=== PATIENT | male | born 1955 | race Caucasian/White ===

== ENCOUNTER 2021-01-30 15:27 | Inpatient (IN) | payer MEDICARE, OTHER, SELFPAY ==
[2021-01-30] VITALS (35 sets, daily range): BP systolic 121–150; BP diastolic 68–79; PULSE 78–122; RESP 15–23; TEMP 36.6–37.3; O2SAT 91–99; BMI 26.4
--- NOTE | 2021-01-30 15:41 | XRR_ITS ---
PROCEDURE INFORMATION: Exam: XR Chest Exam date and time: 01/30/2021 3:50 PM Age: 65 years old Clinical indication: Dyspnea; Additional info: Dyspnea/cough TECHNIQUE: Imaging protocol: XR of the chest. Views: 1 view. COMPARISON: CR Chest 1 [place] [id number] 02/10/2019 6:26 AM FINDINGS: Lungs: There is platelike atelectasis at the left lung base. Pleural spaces: Unremarkable. No pleural effusion. No pneumothorax. Heart/Mediastinum: Unremarkable. No cardiomegaly. Diaphragm: There is mild elevation of the left hemidiaphragm with transposition of the splenic flexure colon superior to the spleen there is gaseous distension of the visualized splenic flexure. Bones/joints: Unremarkable. XR/XR chest 1V portable [id number] IMPRESSION: Mild elevation of the left hemidiaphragm associated with transposition of the splenic flexure colon superior to the spleen. This is a normal variant. Currently there is gaseous distension of the visualized splenic flexure and platelike atelectasis at the left lung base.
--- NOTE | 2021-01-30 15:48 | W.ED.FEVER ---
HPI - Fever General: Chief Complaint: Fever Stated Complaint: fever Time Seen by Provider: 01/30/21 15:30 History of Present Illness: HPI Narrative: 65-year-old male who presents emergency room complaining of a fever. He has been running a fever most of this past week. He has seen his primary care physician in [facility] where he lives and was told he had an elevated white count. He has a history of MS and he self caths he frequently has urinary tract infections he evidently has been taking cefdinir as a prophylactic for some time now. He is wheelchair-bound due to MS he denies any skin ulcers or redness. He had a temp of up to 103 earlier today. MD elicited complaint: fever Pertinent past history: sepsis and other (UTIs, self cath, history MS) Onset (ago): day(s) (5) Exacerbating factors: nothing Relieving factors: nothing Associated symptoms: Reports chills; Deny abdominal pain, flank pain, chest pain, confusion, cough, diarrhea, dysuria, extremity pain, headache(s), myalgias, nasal congestion, nausea, night sweats, rash, rhinorrhea, short of breath, sinus pain, stiffness, sore throat, vomiting or weight loss Treatments prior to arrival fever: none Review of Systems Const: Reports: chills; Denies: night sweats ENMT: Denies: nasal congestion or sinus pain Card: Denies: chest pain Resp: Denies: dyspnea, productive cough or non-productive cough GI: Denies: abdominal pain, nausea, vomiting or diarrhea : Denies: flank pain or dysuria Musc: Denies: extremity pain Skin/Breast: Denies: rash or pruritus Neuro: Denies: headache(s) or confusion Physical Exam Const: COMMON NORMALS: no acute distress GENERAL APPEARANCE: cooperative and comfortable ORIENTATION/CONSCIOUSNESS: Yes awake, Yes oriented to person, Yes oriented to place and Yes oriented to time HENMT: COMMON NORMALS: normocephalic, atraumatic and hearing grossly normal bilaterally HEAD & SCALP: normocephalic and atraumatic Neck/C-Spine: COMMON NORMALS: no JVD Resp: COMMON NORMALS: normal respiratory effort, No retractions, No use of accessory muscles and clear to auscultation bilaterally AUSCULTATION: clear to auscultation bilaterally Cardio: COMMON NORMALS: no JVD, regular rhythm and No murmurs present (Cardio) RATE: tachycardic RHYTHM: regular rhythm GI: COMMON NORMALS: Soft to palpation and No hepatosplenomegaly present AUSCULTATION: Yes normoactive bowel sounds PALPATION: Yes Soft to palpation, No Tenderness to palpation present (GI), No Guarding due to palpation present (GI) and Yes No hepatosplenomegaly present Extremity: COMMON NORMALS: normal to inspection, capillary refill normal, no clubbing, cyanosis or edema, no calf tenderness and no pedal edema Neuro: SENSORIUM/ORIENTATION: Yes oriented to person, Yes oriented to place and Yes oriented to time Skin: COMMON NORMALS: no rashes or lesions noted GENERAL SKIN EXAM: no rashes or lesions noted Course Vital Signs: Vital signs: Vital Signs Temperature 97.0 F L 01/31/21 20:47 Pulse Rate 90 02/01/21 06:00 Respiratory Rate 16 01/31/21 20:00 Blood Pressure 122/72 02/01/21 05:00 Pulse Oximetry 88 L 02/01/21 01:30 MDM - Fever MDM Narrative: Medical decision making narrative: Profound sepsis with an elevated white count. Concerned about the patient antibiotic coverage she has been on prophylactic antibiotics for extended period of time include except there is likely to lead to highly resistant bacteria. We will cover him with vancomycin Levaquin and Zosyn initially in the ER. Discussed with the hospitalist. Orders are written. Will place in the ICU. Suspect he may need Primaxin to cover for ESBL also discussed this with the hospitalist. Discussed the course of care with the patient as well as the lab findings he expressed and his both expressed understanding. Lab Data: Labs: Lab Results 01/30/21 01/30/21 01/30/21 Range/Units 16:27 16:27 16:27 WBC 40.3 H* (4.0-10.0) 10^3/ uL RBC 5.19 (4.1-5.3) 10^6/u L Hgb 16.1 (11.7-16.6) g/dL Hct 47.8 (42.0-52.0) % MCV 92.1 (80-94) fL MCH 31.0 (28.0-34.0) pg MCHC 33.7 (30.0-36.0) g/dL RDW 14.0 (12.1-15.1) % Plt Count 366 (130-400) 10^3/c mm MPV 9.1 (7.4-10.4) fL Neut % (Auto) 87.2 % Lymph % (Auto) 2.5 % [place] % (Auto) 8.8 % Eos % (Auto) 0.0 % Baso % (Auto) 0.4 % Neut # (Auto) 35.09 H (1.8-7.7) 10^3/u L Lymph # (Auto) 1.0 (0.8-4.8) 10^3/u L [place] # (Auto) 3.6 H (0.2-0.9) 10^3/u L Eos # (Auto) 0.0 (0.0-0.8) 10^3/u L Baso # (Auto) 0.2 H (0.0-0.1) 10^3/u L Nucleated RBC % (a uto) 0 % Nucleated RBCs # 0.0 /100WBC Sodium 134 L (136-145) mmol/L Potassium 4.2 (3.5-5.1) mmol/L Chloride 97 L (98-107) mmol/L Carbon Dioxide 25 (22-29) mmol/L Anion Gap 16.2 (5-19) BUN 13 (8-23) mg/dL Creatinine 0.9 (0.7-1.2) mg/dL GFR Calculation 84.2 L (90-130) mL/min Glucose 194 H (65-115) mg/dL Calculated Osmolal ity 283 L (285-295) mOsm/k g Lactic Acid 1.8 (0.5-2.2) mmol/L Calcium 9.2 (8.5-10.5) mg/dL Total Bilirubin 0.5 (0.15-1.2) mg/dL AST 14 (0-40) U/L ALT 23 (0-41) U/L Alkaline Phosphata se 94 (40-130) IU/L Creatine Kinase 44 (39-308) U/L Total Protein 8.3 (6.6-8.7) g/dL Albumin 4.3 (3.5-5.2) g/dL Globulin 4.0 (1.3-4.6) g/dL Lipase 18 (13-60) U/L Urine Color (Yellow) Urine Appearance (CLEAR) Urine pH (5-7) Ur Specific Gravit y (1.005-1.030) Urine Protein (Negative) Urine Glucose (UA) (Normal) Urine Ketones (Negative) Urine Blood (Negative) Urine Nitrate (Negative) Urine Bilirubin (Negative) Urine Urobilinogen (Negative) mg/dL Ur Leukocyte Maryjane ase (Negative) Urine RBC (0-2) /hpf Urine WBC (0-5) /hpf Ur Squamous Epith Cells (0-5) /hpf Ur Transition Epit h Cell /hpf Amorphous Sediment Urine Bacteria (NONE) /hpf Urine Mucus /hpf 01/30/21 Range/Units 16:33 WBC (4.0-10.0) 10^3/ uL RBC (4.1-5.3) 10^6/u L Hgb (11.7-16.6) g/dL Hct (42.0-52.0) % MCV (80-94) fL MCH (28.0-34.0) pg MCHC (30.0-36.0) g/dL RDW (12.1-15.1) % Plt Count (130-400) 10^3/c mm MPV (7.4-10.4) fL Neut % (Auto) % Lymph % (Auto) % [place] % (Auto) % Eos % (Auto) % Baso % (Auto) % Neut # (Auto) (1.8-7.7) 10^3/u L Lymph # (Auto) (0.8-4.8) 10^3/u L [place] # (Auto) (0.2-0.9) 10^3/u L Eos # (Auto) (0.0-0.8) 10^3/u L Baso # (Auto) (0.0-0.1) 10^3/u L Nucleated RBC % (a uto) % Nucleated RBCs # /100WBC Sodium (136-145) mmol/L Potassium (3.5-5.1) mmol/L Chloride (98-107) mmol/L Carbon Dioxide (22-29) mmol/L Anion Gap (5-19) BUN (8-23) mg/dL Creatinine (0.7-1.2) mg/dL GFR Calculation (90-130) mL/min Glucose (65-115) mg/dL Calculated Osmolal ity (285-295) mOsm/k g Lactic Acid (0.5-2.2) mmol/L Calcium (8.5-10.5) mg/dL Total Bilirubin (0.15-1.2) mg/dL AST (0-40) U/L ALT (0-41) U/L Alkaline Phosphata se (40-130) IU/L Creatine Kinase (39-308) U/L Total Protein (6.6-8.7) g/dL Albumin (3.5-5.2) g/dL Globulin (1.3-4.6) g/dL Lipase (13-60) U/L Urine Color Yellow (Yellow) Urine Appearance Clear (CLEAR) Urine pH 5 (5-7) Ur Specific Gravit y 1.015 (1.005-1.030) Urine Protein Trace (Negative) Urine Glucose (UA) Norm (Normal) Urine Ketones Negative (Negative) Urine Blood Trace H (Negative) Urine Nitrate Negative (Negative) Urine Bilirubin Neg (Negative) Urine Urobilinogen 1 H (Negative) mg/dL Ur Leukocyte Maryjane ase 1+ H (Negative) Urine RBC 0-4 H (0-2) /hpf Urine WBC 15-25 H (0-5) /hpf Ur Squamous Epith Cells 0-4 H (0-5) /hpf Ur Transition Epit h Cell Rare /hpf Amorphous Sediment Not Reportable Urine Bacteria Trace (NONE) /hpf Urine Mucus 1+ /hpf Discharge Plan Discharge Patient Disposition: Admitted As Inpatient Admit Provider: Nj Moody Clinical Impression: Sepsis, UTI (urinary tract infection), HTN (hypertension), Multiple sclerosis Condition: Stable Coding Level of Care Code 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
[2021-01-30 16:42] LABS: Basophils # 0.2 10^3/uL (0.0-0.1); Basophils % 0.4 %; Hematocrit 47.8 % (42.0-52.0); Hemoglobin 16.1 g/dL (11.7-16.6); Lymphocytes % 2.5 %; Mean Corpuscular HGB Conc 33.7 g/dL (30.0-36.0); Mean Corpuscular Volume 92.1 fL (80-94); Mean Platelet Volume 9.1 fL (7.4-10.4); Monocytes # 3.6 10^3/uL (0.2-0.9); Monocytes % 8.8 %; Neutrophils # 35.09 10^3/uL (1.8-7.7); Neutrophils % 87.2 %; Nucleated Red Blood Cells % 0 %; Platelet Count 366 10^3/cmm (130-400); Red Blood Count 5.19 10^6/uL (4.1-5.3)
[2021-01-30 16:50] LABS: White Blood Count 40.3 10^3/uL (4.0-10.0)
[2021-01-30 16:53] LABS: Alanine Aminotransferase 23 U/L (0-41); Albumin Level 4.3 g/dL (3.5-5.2); Alkaline Phosphatase 94 IU/L (40-130); Anion Gap 16.2 (5-19); Aspartate Amino Transferase 14 U/L (0-40); Blood Urea Nitrogen 13 mg/dL (8-23); Calcium 9.2 mg/dL (8.5-10.5); Carbon Dioxide 25 mmol/L (22-29); Chloride 97 mmol/L (98-107); Creatine Phosphokinase 44 U/L (39-308); Glomerular Filtration Rate 84.2 mL/min (90-130); Glucose 194 mg/dL (65-115); Lipase 18 U/L (13-60); Osmolality Calculated 283 mOsm/kg (285-295); Potassium 4.2 mmol/L (3.5-5.1); Sodium 134 mmol/L (136-145); Total Bilirubin 0.5 mg/dL (0.15-1.2); Total Protein 8.3 g/dL (6.6-8.7)
[2021-01-30 16:54] LABS: Lactic Sepsis W/Reflex 1.8 mmol/L (0.5-2.2)
[2021-01-30 16:57] LABS: Bilirubin Urine Neg (Negative); Blood Urine Trace (Negative); Glucose Urine UA Norm (Normal); Ketones Urine Negative (Negative); Leukocyte Esterase Urine 1+ (Negative); Nitrate Urine Negative (Negative); Protein Urine Trace (Negative); Specific Gravity, Urine 1.015 (1.005-1.030); Urine Appearance Clear (CLEAR); Urine Color Yellow (Yellow); Urobilinogen Urine 1 mg/dL (Negative); pH Urine 5 (5-7)
[2021-01-30 16:58] LABS: Add Urine Microscopic? YES
[2021-01-30 17:03] LABS: RBC Urine 0-4 /hpf (0-2); Squamous Epithelial Cell Urine 0-4 /hpf (0-5); Transitional Epi Cells Urine RARE /hpf; WBC Urine 15-25 /hpf (0-5)
[2021-01-30 17:04] LABS: Add Urine Culture? Yes; Bacteria Urine TRACE /hpf; Mucus Urine 1+ /hpf
--- NOTE | 2021-01-30 17:17 | CTR_ITS ---
PROCEDURE INFORMATION: Exam: CT Abdomen And Pelvis With Contrast Exam date and time: 01/30/2021 5:30 PM Age: 65 years old Clinical indication: Patient HX: HX of ms and uti's C/O fever; Additional info: Abd pain TECHNIQUE: Imaging protocol: Computed tomography of the abdomen and pelvis with contrast. Radiation optimization: All CT scans at this facility use at least one of these dose optimization techniques: automated exposure control; mA and/or kV adjustment per patient size (includes targeted exams where dose is matched to clinical indication); or iterative reconstruction. Contrast material: OMNI 300; Contrast volume: 95 ml; Contrast route: INTRAVENOUS (IV); COMPARISON: No relevant prior studies available. RADIATION DOSE METRICS: Total DLP (mGy-cm): 1721.43 FINDINGS: Tubes, catheters and devices: A stimulator lead extends through a right sacral neural foramen. Lungs: Streaky opacities at the left lung base are most consistent with scarring and/or atelectasis. There is elevation of the left hemidiaphragm. Liver: Normal. No mass. Gallbladder and bile ducts: Normal. No calcified stones. No ductal dilation. Pancreas: Moderate fatty atrophy of the pancreas. Spleen: See Stomach and bowel finding. Adrenal glands: Normal. No mass. Kidneys and ureters: Normal. No hydronephrosis. Stomach and bowel: Colonic constipation is present. Ascending colon is mildly dilated measuring to 7.3 cm. There is mild mucosal thickening of the distal rectosigmoid colon. Transposition of the splenic flexure superior to the spleen. Appendix: A normal appendix is identified. Intraperitoneal space: Unremarkable. No free air. No significant fluid collection. Vasculature: Multivessel atherosclerotic disease which involves the coronary arteries. Lymph nodes: Unremarkable. No enlarged lymph nodes. Urinary bladder: There is a diverticulum off the superior aspect of the bladder. Bladder wall enhances somewhat prominently. Reproductive: Prostate gland is heterogeneous and enlarged. Bones/joints: Unremarkable. No acute fracture. Soft tissues: Unremarkable. CT/CT abdomen pelvis w con* [id number] IMPRESSION: 1. There is colonic constipation with mild dilatation raising concern for partial obstruction. 2. Mild mucosal thickening of the distal rectosigmoid colon is consistent with a nonspecific colitis. 3. Bladder wall enhances somewhat prominently raising concern for cystitis. Please correlate clinically. 4. Prostate gland is heterogeneous and enlarged. Radiation Dose CTDIVOL = (mGy): DLP = 1721.43 (mGy-cm)
[2021-01-30] MEDS: iohexol 300 mg/mL 100 mL Btl IV (17:37)
[2021-01-30] MEDS: piperacillin-tazobactam 3.375 GM in sodium chloride 0.9% (plus) 50 ML IV ×2 (17:38→22:39)
[2021-01-30] MEDS: vancomycin 1,000 MG in sodium chloride 0.9% 250 ML 250 MG IV (17:38)
--- NOTE | 2021-01-30 18:34 | PM.HP ---
Providers/Chief Complaint Chief Complaint: fever History of Present Illness German Wright is a 65 year old male with past medical history of hypertension, multiple sclerosis, recurrent UTI came in with chief complaint of fever of 102 this morning as well as some weakness. Patient has history of MS for which he self caths himself, and has history of recurrent UTI for which he is on chronic suppressive therapy on cefdinir 300 mg p.o. daily, as well as doxycycline 100 mg p.o. twice daily. Upon arrival in the ER he was worked up for above-mentioned complaint. Pertinent imaging study: CT abdomen and pelvis without contrast: Suggestive of cystitis, as well as constipation. X-ray chest: No infiltrates, platelike atelectasis at the left lung base, no effusion, no pneumothorax Pertinent labs: WBC:40T, lactic acid:1.8, urinalysis: Urine WBC:15-25/HPF, urine leukocyte Estrace: 1+, urine nitrite: Negative. ECA medications: He received a dose of 1 g vancomycin as well as Zosyn, will started on IV hydration. Review of Systems Const: Denies: chills, body aches, change in appetite or diaphoresis Card: Denies: palpitations, edema or swelling of feet/ankles Resp: Denies: dyspnea, productive cough, wheezing or pain on inspiration GI: Denies: abdominal pain, nausea, vomiting or diarrhea Musc: Denies: extremity pain or extremity swelling Neuro: Denies: headache(s) or confusion Medications/Allergies Home Medications Medication Instructions Recorded Confirmed Last Taken Type amantadine HCl 100 mg PO DAILY 01/30/21 01/30/21 01/30/21 History amlodipine-benazepril 1 cap PO DAILY 01/30/21 01/30/21 01/30/21 History atorvastatin 10 mg PO EVERY OTHER DAY 01/30/21 01/30/21 01/29/21 History cefdinir 300 mg PO DAILY 01/30/21 01/30/21 01/30/21 History dalfampridine [Ampyra] 10 mg PO Q12H 01/30/21 01/30/21 01/30/21 History diazepam 2 mg PO BEDTIME 01/30/21 01/30/21 01/29/21 History doxycycline hyclate 100 mg PO BID 01/30/21 01/30/21 01/29/21 History folic acid 1 mg PO BEDTIME 01/30/21 01/30/21 01/29/21 History methotrexate sodium 7.5 mg PO Q7D 01/30/21 01/30/21 01/29/21 History montelukast 10 mg PO DAILY 01/30/21 01/30/21 01/30/21 History tizanidine 4 mg PO BEDTIME 01/30/21 01/30/21 01/29/21 History Allergies Allergy/AdvReac Type Severity Reaction Status Date / Time azathioprine [From Imuran] Allergy ADR/ALGY-Pa Verified 01/30/21 15:39 lpitations Vitals/I&O/Wt Last Vital Signs Temp 99.1 F 01/30/21 15:29 Pulse 113 H 01/30/21 16:37 Resp 18 01/30/21 16:37 BP 130/74 01/30/21 16:37 Pulse Ox 95 01/30/21 16:37 Weight last 48 hrs Weight 86.183 kg Physical Exam Const: COMMON NORMALS: patient oriented x3 HENMT: COMMON NORMALS: normocephalic and atraumatic HEAD & SCALP: normocephalic and atraumatic Resp: AUSCULTATION: clear to auscultation bilaterally Cardio: COMMON NORMALS: regular rate, regular rhythm, S1 normal heart sound present, S2 normal heart sound present, No gallops present (Cardio) and Peripheral pulses 2+ throughout RATE: regular rate RHYTHM: regular rhythm HEART SOUNDS: S1 normal heart sound present and S2 normal heart sound present PERIPHERAL PULSES: Peripheral pulses 2+ throughout OTHER: PSM in the mitral area. GI: COMMON NORMALS: Normal to inspection, nondistended, normoactive bowel sounds present, Soft to palpation, non-tender, No hepatosplenomegaly present and no masses AUSCULTATION: Yes normoactive bowel sounds PALPATION: Yes Soft to palpation and Yes No hepatosplenomegaly present RECTAL EXAM: Yes deferred Extremity: COMMON NORMALS: no clubbing, cyanosis or edema and no pedal edema Neuro: COMMON NORMALS: patient oriented x3 Data : 01/30/21 16:27 01/30/21 16:27 Micro: Microbiology 01/30/21 17:53 Blood Culture - Preliminary Blood SPECIMEN COLLECTED 01/30/21 16:27 Blood Culture - Preliminary Blood SPECIMEN COLLECTED A&P Assessment and plan (1) Sepsis: Sepsis: As the patient has fever , tachycardia , leukocytosis, and possible UTI. Blood culture Urine culture Lactic acid: normal Procalcitonin: MRSA PCR : X-ray chest: Normal CT abdomen pelvis with contrast:Suggestive of cystitis Vancomycin Zosyn Status: Acute (2) UTI (urinary tract infection): Recurrent UTI Plan 1 Status: Acute (3) HTN (hypertension): Currently nromotensive Status: Acute (4) Multiple sclerosis: Currently not in flair. Continue Home medications. Status: Acute Additional A&P Information Code :Status :Full code DVT PPX:Lovenox Disposition :Home. Attestations Medical Necessity Statement*: Patient is to be in hospital for management of sepsis.Anticipated length of stay greater than 2 midnights Coding Level of Care Code Acute Junior Mechanical Engineer for g Fwd Diagnoses Sepsis A41.9 UTI (urinary tract infection) N39.0 HTN (hypertension) I10 Multiple sclerosis G35
--- NOTE | 2021-01-30 18:40 | PC.NURSE ---
Gave supplies for Self Cath
[2021-01-30] MEDS: Fleet Enema 133 mL Enema PR (20:20)
[2021-01-30] MEDS: enoxaparin 40 mg/0.4 mL Syringe SUBCUT (20:26)
--- NOTE | 2021-01-30 20:26 | PC.NURSE ---
Pt assited into bed for enema order. No impaction noted, pt tolerates well, waiting for stool. Pt instructed to push call light when ready.
[2021-01-30] MEDS: magnesium hydroxide 30 mL UDC PO (22:39)
[2021-01-30] MEDS: D5-NS 0.45% + KCL 20 mEq 20 MEQ/1,000 ML BAG 100 MEQ IV (22:39)
[2021-01-30] MEDS: folic acid 1 mg Tablet PO (22:40)
[2021-01-30] MEDS: tizanidine 4 mg Tablet PO (22:40)
[2021-01-30] MEDS: diazePAM 2 mg Tablet PO (22:40)
[2021-01-30] MEDS: sennosides 8.6 mg Tablet 17.2 MG PO (22:40)
--- NOTE | 2021-01-30 23:36 | PC.NURSE ---
Attempted soap suds enema but with no success. Patient tolerated well. No resistance noted when inserting enema tubing. Fluid return was slightly brown tinge at first but shortly after starting it became clear.
[2021-01-31] VITALS (133 sets, daily range): BP systolic 105–180; BP diastolic 63–83; PULSE 76–105; RESP 13–27; TEMP 36.1–36.9; O2SAT 79–98
[2021-01-31 05:06] LABS: Basophils # 0.1 10^3/uL (0.0-0.1); Basophils % 0.3 %; Eosinophils # 0.1 10^3/uL (0.0-0.8); Eosinophils % 0.2 %; Hematocrit 43.8 % (42.0-52.0); Hemoglobin 14.2 g/dL (11.7-16.6); Lymphocytes # 1.8 10^3/uL (0.8-4.8); Lymphocytes % 5.6 %; Mean Corpuscular HGB Conc 32.4 g/dL (30.0-36.0); Mean Corpuscular Hemoglobin 31.1 pg (28.0-34.0); Mean Corpuscular Volume 96.1 fL (80-94); Mean Platelet Volume 9.6 fL (7.4-10.4); Monocytes # 2.3 10^3/uL (0.2-0.9); Monocytes % 7.1 %; Neutrophils # 27.23 10^3/uL (1.8-7.7); Neutrophils % 85.9 %; Nucleated Red Blood Cells % 0 %; Platelet Count 309 10^3/cmm (130-400); Red Blood Count 4.56 10^6/uL (4.1-5.3); Red Cell Distribution Width 14.4 % (12.1-15.1)
[2021-01-31 05:08] LABS: White Blood Count 31.7 10^3/uL (4.0-10.0)
[2021-01-31 05:40] LABS: Procalcitonin 0.33 ng/mL (0-0.5)
[2021-01-31] MEDS: vancomycin 1,250 MG/250 ML PIGGYBACK 250 MG IV ×2 (05:46→17:29)
[2021-01-31 05:51] LABS: Alanine Aminotransferase 18 U/L (0-41); Albumin Level 3.8 g/dL (3.5-5.2); Alkaline Phosphatase 81 IU/L (40-130); Blood Urea Nitrogen 9 mg/dL (8-23); Calcium 8.7 mg/dL (8.5-10.5); Carbon Dioxide 25 mmol/L (22-29); Chloride 100 mmol/L (98-107); Globulin 3.3 g/dL (1.3-4.6); Glomerular Filtration Rate 96.4 mL/min (90-130); Glucose 149 mg/dL (65-115); Osmolality Calculated 287 mOsm/kg (285-295); Sodium 138 mmol/L (136-145); Total Bilirubin 0.7 mg/dL (0.15-1.2); Total Protein 7.1 g/dL (6.6-8.7)
[2021-01-31 05:53] LABS: Anion Gap 16.8 (5-19); Aspartate Amino Transferase 16 U/L (0-40); Potassium 3.8 mmol/L (3.5-5.1)
[2021-01-31] MEDS: piperacillin-tazobactam 3.375 GM in sodium chloride 0.9% (plus) 50 ML IV ×3 (08:04→22:54)
[2021-01-31] MEDS: docusate sodium 100 mg Capsule PO ×2 (08:11→17:38)
--- NOTE | 2021-01-31 08:39 | PC.NURSE ---
Patient requested to take morning dose of montelukast later in day.
--- NOTE | 2021-01-31 09:08 | PC.NURSE ---
Patient asked this nurse to assist him to the bedside commode to attempt to have a bowel movement. This nurse told patient I needed to put a pair of non skid socks on first and patient and his refused. stated that she would wait until he got into his wheelchair so he could put on compression socks from home. Then patient said he could transfer self with assist to bedside commode. Patient was educated on the importance of safe transfers inside of hospitals but was persistent on transferring self with and nurse. Patient was unable to move legs and scooted legs on the floor while this nurse held patients arms. Then patient let go of rails on BSC an twisted upper body to land on BSC. Call light was given to patient and told to push call light when finished.
--- NOTE | 2021-01-31 10:41 | PC.NURSE ---
Patient was transferred to wheelchair by and put back in normal clothes after bowel movement without nursing staff present. This nurse educated patient on the importance of being in a hospital gown but he still requested to stay in personal clothes and sit in wheelchair.
--- NOTE | 2021-01-31 14:24 | PM.PN ---
Subjective Subjective: Interval history: Patient was seen and examined this morning, no acute events overnight, continues to remain afebrile, hemodynamically stable.WBC is trending down Vitals/I&O/Wt Last Vital Signs Temp 98.4 F 01/31/21 01:35 Pulse 84 01/31/21 12:30 Resp 17 01/31/21 12:30 BP 154/74 01/31/21 12:30 Pulse Ox 97 01/31/21 12:30 01/30/21 01/31/21 01/31/21 22:59 06:59 14:59 Intake Total 2885.49 / 2885.49 50 / 2935.49 1290 / 1290 Output Total 1350 / 1350 900 / 900 Balance 2885.49 / 2885.49 -1300 / 1585.49 390 / 390 Weight last 48 hrs Weight 86.183 kg Physical Exam Const: COMMON NORMALS: patient oriented x3 HENMT: COMMON NORMALS: normocephalic and atraumatic HEAD & SCALP: normocephalic and atraumatic Resp: COMMON NORMALS: clear to auscultation bilaterally AUSCULTATION: clear to auscultation bilaterally Cardio: COMMON NORMALS: regular rate, regular rhythm, S1 normal heart sound present, S2 normal heart sound present, No gallops present (Cardio) and Peripheral pulses 2+ throughout RATE: regular rate RHYTHM: regular rhythm HEART SOUNDS: S1 normal heart sound present and S2 normal heart sound present PERIPHERAL PULSES: Peripheral pulses 2+ throughout OTHER: PSM in the mitral area. GI: COMMON NORMALS: Normal to inspection, nondistended, normoactive bowel sounds present, Soft to palpation, non-tender, No hepatosplenomegaly present and no masses AUSCULTATION: Yes normoactive bowel sounds PALPATION: Yes Soft to palpation and Yes No hepatosplenomegaly present RECTAL EXAM: Yes deferred Extremity: COMMON NORMALS: no clubbing, cyanosis or edema and no pedal edema Neuro: COMMON NORMALS: patient oriented x3 Data : 01/31/21 03:46 01/31/21 03:46 Micro: Microbiology 01/30/21 17:53 Blood Culture - Preliminary Blood SPECIMEN COLLECTED 01/30/21 16:27 Blood Culture - Preliminary Blood SPECIMEN COLLECTED A&P Assessment and plan (1) Sepsis: Sepsis: As the patient has fever , tachycardia , leukocytosis, and possible UTI. Blood culture:NTD Urine culture: Lactic acid: normal Procalcitonin:Normal MRSA PCR : Negative X-ray chest: Normal CT abdomen pelvis with contrast:Suggestive of cystitis Vancomycin ( 01/30--01/31 ) Zosyn Status: Acute (2) UTI (urinary tract infection): Recurrent UTI Plan 1 Status: Acute (3) HTN (hypertension): Continue Amlodipine 10 mg and Benazepril 40 mg po daily Status: Acute (4) Multiple sclerosis: Currently not in flair. Continue Home medications. Status: Acute Additional A&P Information Code :Status :Full code DVT PPX:Lovenox Disposition :Home. Attestations Medical Necessity Statement*: Patient needs to be in hospital for management of sepsis. Coding Level of Care Code Acute Junior Java Developer for Naren Henry Diagnoses Sepsis A41.9 UTI (urinary tract infection) N39.0 HTN (hypertension) I10 Multiple sclerosis G35
[2021-01-31] MEDS: enoxaparin 40 mg/0.4 mL Syringe SUBCUT (19:01)
[2021-01-31] MEDS: tizanidine 4 mg Tablet PO (20:16)
[2021-01-31] MEDS: diazePAM 2 mg Tablet PO (20:16)
[2021-01-31] MEDS: sennosides 8.6 mg Tablet 17.2 MG PO (20:16)
[2021-01-31] MEDS: folic acid 1 mg Tablet PO (20:17)
[2021-01-31] MEDS: montelukast sodium 10 mg Tablet PO (20:39)
[2021-01-31] MEDS: lisinopril 20 mg Tablet 40 MG PO (20:39)
[2021-01-31] MEDS: acetaminophen 325 mg Tablet 650 MG PO (20:45)
[2021-02-01] VITALS (28 sets, daily range): BP systolic 122–148; BP diastolic 62–92; PULSE 73–107; RESP 16–18; TEMP 36.9–37.1; O2SAT 85–98
[2021-02-01 03:53] LABS: Basophils # 0.1 10^3/uL (0.0-0.1); Basophils % 0.5 %; Eosinophils # 0.2 10^3/uL (0.0-0.8); Eosinophils % 1.2 %; Hematocrit 41.4 % (42.0-52.0); Hemoglobin 13.6 g/dL (11.7-16.6); Lymphocytes # 1.9 10^3/uL (0.8-4.8); Lymphocytes % 10.3 %; Mean Corpuscular HGB Conc 32.9 g/dL (30.0-36.0); Mean Corpuscular Hemoglobin 30.7 pg (28.0-34.0); Mean Corpuscular Volume 93.5 fL (80-94); Mean Platelet Volume 9.4 fL (7.4-10.4); Monocytes # 1.5 10^3/uL (0.2-0.9); Monocytes % 7.8 %; Neutrophils # 14.99 10^3/uL (1.8-7.7); Neutrophils % 79.7 %; Nucleated Red Blood Cells % 0 %; Platelet Count 298 10^3/cmm (130-400); Red Blood Count 4.43 10^6/uL (4.1-5.3); Red Cell Distribution Width 14.3 % (12.1-15.1); White Blood Count 18.8 10^3/uL (4.0-10.0)
[2021-02-01 04:21] LABS: Anion Gap 12.8 (5-19); Blood Urea Nitrogen 11 mg/dL (8-23); Calcium 8.5 mg/dL (8.5-10.5); Carbon Dioxide 25 mmol/L (22-29); Chloride 104 mmol/L (98-107); Glomerular Filtration Rate 84.2 mL/min (90-130); Glucose 124 mg/dL (65-115); Osmolality Calculated 287 mOsm/kg (285-295); Potassium 3.8 mmol/L (3.5-5.1); Sodium 138 mmol/L (136-145)
[2021-02-01 04:26] LABS: Vancomycin Trough 10.4 ug/mL (10-15)
[2021-02-01] MEDS: piperacillin-tazobactam 3.375 GM in sodium chloride 0.9% (plus) 50 ML IV ×3 (06:04→22:21)
--- NOTE | 2021-02-01 06:21 | PC.NURSE ---
Patient rested in bed all night. at bedside to help patient with cares. No s/s of distress. No changes. Continue care.
[2021-02-01] MEDS: atorvastatin 40 mg Tablet 20 MG PO (08:08)
[2021-02-01] MEDS: amlodipine 10 mg Tablet PO (08:08)
[2021-02-01] MEDS: docusate sodium 100 mg Capsule PO ×2 (08:08→16:08)
[2021-02-01] MEDS: lisinopril 20 mg Tablet 40 MG PO (08:09)
--- NOTE | 2021-02-01 09:03 | PC.NURSE ---
Patient was assisted by this nurse and to bedside commode in attempt to have a bowel movement. Patient was able to pass a small amount of clear mucus. Will inform Dr. Medina
--- NOTE | 2021-02-01 10:36 | XRR_ITS ---
PROCEDURE INFORMATION: Exam: XR Abdomen Exam date and time: 02/01/2021 11:18 AM Age: 65 years old Clinical indication: Abnormal findings; Abnormal radiologic finding of the abdomen; Radiologic exam and body structure: CT; Patient HX: HX of ms; Additional info: Colonic distension and obstrcution noted on CT, f/up imaging TECHNIQUE: Imaging protocol: XR of the abdomen. Views: Frontal supine view of the abdomen. 1 View. COMPARISON: CT abdomen pelvis w con* [id number] 01/30/2021 5:34 PM FINDINGS: Tubes, catheters and devices: A neurostimulator lead projects over the right sacral region. Gastrointestinal tract: Persistent air distended colon, extending to the left upper quadrant, and evidence of constipation proximally. Bones/joints: Unremarkable. XR/XR abdomen 1V* [id number] IMPRESSION: 1. Persistent air distended colon extending to the left upper quadrant, and evidence of constipation proximally. 2. CT images demonstrate inter sigmoid/left paraduodenal and trans omental herniation of the sigmoid colon, resulting in 2 consecutive areas of colon narrowing and distension, and leading to obstruction with accumulation of stool throughout the colon proximally. THIS REPORT CONTAINS FINDINGS THAT MAY BE CRITICAL TO PATIENT CARE. The findings were verbally communicated via telephone conference with CHENTE COOK at 12:41 PM CDT on 02/01/2021. The findings were acknowledged and understood.
--- NOTE | 2021-02-01 14:16 | PC.NURSE ---
Patient was transferred to [facility] via wheelchair with and all belongings at around 1330.
--- NOTE | 2021-02-01 14:19 | PM.CONSULT ---
Providers/Reason For Consult Consulting Physican/Specialty*: General Surgery George Wayne MD Reason for Consult*: Chronic constipation, possible internal hernia by CAT scan. Attending Physician: Jodi Medina MD History of Present Illness History of Present Illness German Wright is a 65 year old male recently admitted with some fevers, weakness and fatigue. It sounds like his problem started perhaps 8 days ago when he was found to be running a low-grade fever. He was seen by his physicians in [place] where he resides and was started on some oral antibiotics for a possible urinary tract infection, which is a chronic recurring problem for him. He has multiple sclerosis and self catheterizes at home. He says his symptoms improved to the point where he even underwent a Botox injection of his bladder by his urologist last (this is also a recurring procedure for him). His urinary cultures came back negative. He said he felt great the following day and was coming back this direction on Monday where he and his spend a lot of time at the [place] [address] [employer]. I believe [place] actually got [place] the [place] he felt poorly again and it was found that his temperature was 102 degrees. He came into the hospital and was started on some antibiotics. He has subsequently improved and his white blood cell count has begun to defervesce. The patient says it has been about a week since he had several large bowel movements for 2 or 3 days in a row. He said it is not unusual for him to go a week or even 2 weeks without having any bowel movements. This is a lifelong issue for him. He takes mineral oil and laxatives every day to try to keep on top of this. He says he had a small loose bowel movement yesterday and had a very small mucousy bowel movement this morning. He denies any abdominal pain. A CAT scan done a couple days ago was eventually read as possibly showing an internal hernia involving the sigmoid colon. The patient continues to pass flatus but says that it may not be quite as much as normal. He denies any abdominal pain, recent hematochezia, etc. He is on a regular diet and seems to be tolerating that fine. He has never had a colonoscopy. His mother does have a history of colon cancer. Review of Systems General: Reports: 10 or more systems reviewed and unremarkable except in HPI and below Const: Reports: fever(s) GI: Reports: constipation; Denies: abdominal pain or nausea Neuro: Reports: other (Multiple sclerosis) Meds/Allergies Home Medications and Allergies Home Medications Medication Instructions Recorded Confirmed Last Taken Type amantadine HCl 100 mg PO DAILY 01/30/21 01/30/21 01/30/21 History amlodipine-benazepril 1 cap PO DAILY 01/30/21 01/30/21 01/30/21 History atorvastatin 10 mg PO EVERY OTHER DAY 01/30/21 01/30/21 01/29/21 History cefdinir 300 mg PO DAILY 01/30/21 01/30/21 01/30/21 History dalfampridine [Ampyra] 10 mg PO Q12H 01/30/21 01/30/21 01/30/21 History diazepam 2 mg PO BEDTIME 01/30/21 01/30/21 01/29/21 History doxycycline hyclate 100 mg PO BID 01/30/21 01/30/21 01/29/21 History folic acid 1 mg PO BEDTIME 01/30/21 01/30/21 01/29/21 History methotrexate sodium 7.5 mg PO Q7D 01/30/21 01/30/21 01/29/21 History montelukast 10 mg PO DAILY 01/30/21 01/30/21 01/30/21 History tizanidine 4 mg PO BEDTIME 01/30/21 01/30/21 01/29/21 History Allergies Allergy/AdvReac Type Severity Reaction Status Date / Time azathioprine [From Imuran] Allergy ADR/ALGY-Pa Verified 01/30/21 15:39 lpitations Current Medications Current Medications Generic Name Dose Route Start Last Admin Trade Name Freq PRN Reason Stop Dose Admin Acetaminophen 650 mg 01/30/21 18:24 01/31/21 20:45 Acetaminophen 325 Mg Tablet PO 650 mg Q6H PRN Administration Mild/Mod Pain Or Temp >/= 101 Amlodipine Besylate 10 mg 02/01/21 09:00 02/01/21 08:08 Amlodipine 10 Mg Tablet PO 10 mg DAILY MISA Administration Atorvastatin Calcium 20 mg 02/01/21 09:00 02/01/21 08:08 Atorvastatin 40 Mg Tablet PO 20 mg EVERY OTHER DAY MISA Administration Diazepam 2 mg 01/30/21 22:15 01/31/21 20:16 Diazepam 2 Mg Tablet PO 2 mg BEDTIME MISA Administration Docusate Sodium 100 mg 01/31/21 09:00 02/01/21 08:08 Docusate Sodium 100 Mg Capsule PO 100 mg BID MISA Administration Enoxaparin Sodium 40 mg 01/30/21 20:00 01/31/21 19:01 Enoxaparin 40 Mg/0.4 Ml Syringe SUBCUT 40 mg Q24H MISA Administration Folic Acid 1 mg 01/30/21 21:50 01/31/21 20:17 Folic Acid 1 Mg Tablet PO 1 mg BEDTIME MISA Administration Piperacillin Sod/Tazobactam 50 mls @ 12.5 mls/hr 01/30/21 23:00 02/01/21 10:34 Sod 3.375 gm/ Sodium Chloride IV Infused Q8H MISA Infusion Protocol Lisinopril 40 mg 01/31/21 21:00 02/01/21 08:09 Lisinopril 20 Mg Tablet PO 40 mg DAILY MISA Administration Magnesium Hydroxide 30 ml 01/30/21 18:24 01/30/21 22:39 Magnesium Hydroxide 30 Ml Udc PO 30 ml DAILY PRN Administration Constipation (see protocol) Protocol Montelukast Sodium 10 mg 01/31/21 21:00 02/01/21 08:09 Montelukast Sodium 10 Mg Tablet PO Not Given DAILY MISA Non-Formulary Medication 100 mg 01/31/21 09:00 01/31/21 08:11 Amantadine Hcl PO Not Given DAILY MISA Non-Formulary Medication 10 mg 01/30/21 21:50 01/31/21 08:11 Dalfampridine [Ampyra] PO Not Given Q12H MISA Senna 17.2 mg 01/30/21 21:00 01/31/21 20:16 Sennosides 8.6 Mg Tablet PO 17.2 mg BEDTIME MISA Administration Tizanidine HCl 4 mg 01/30/21 21:50 01/31/21 20:16 Tizanidine 4 Mg Tablet PO 4 mg BEDTIME MISA Administration PFSH Acute PFSH: Medical History (Updated 02/01/21 @ 14:35 by George Wayne MD) Chronic constipation Family history of colon cancer Heart murmur HTN (hypertension) Hyperlipidemia Multiple sclerosis UTI (urinary tract infection) Recurrent Surgical History (Updated 02/01/21 @ 14:28 by George Wayne MD) History of tonsillectomy S/P Botox injection Multiple -- urinary bladder neck Social History (Updated 02/01/21 @ 14:29 by George Wayne MD) Smoking and tobacco status: never smoked Alcohol intake: current Alcohol use comment: Infrequent Vitals/I&O/Wt Last Vital Signs Temp 98.4 F 02/01/21 08:01 Pulse 94 02/01/21 13:47 Resp 16 02/01/21 12:00 BP 145/92 02/01/21 12:00 Pulse Ox 97 02/01/21 13:47 01/31/21 02/01/21 02/01/21 22:59 06:59 14:59 Intake Total 900 / 2360 170 / 2360 900 / 900 Output Total 900 / 3400 1600 / 3400 1100 / 1100 Balance 0 / -1040 -1430 / -1040 -200 / -200 Weight last 48 hrs Weight 190 lb Physical Exam Narrative: EXAM NARRATIVE: The patient was encountered in his room on the second floor after being moved from the ICU. He is in his motorized wheelchair. He does not appear to be in any distress. The pupils are equal. No carotid bruits are heard. The lungs are clear. The heart seems regular but there is a significant systolic murmur best heard at the right upper sternal border. The abdomen reveals hypoactive bowel sounds and is somewhat protuberant but is soft and nontender. No obvious masses are palpated. The extremities reveal no edema. Data Micro: Micro: Microbiology 01/30/21 16:33 Urine Culture - Pr eliminary Urine,Clean Catch 01/30/21 17:53 Blood Culture - Pr eliminary Blood NEGATIVE TO DOMI E 01/30/21 16:27 Blood Culture - Pr eliminary Blood NEGATIVE TO DOMI E 01/30/21 20:26 MRSA Culture - Fin al Nose Imaging^: CT Abd/Pel: Radiologist's impression: CT abdomen/pelvis 01/30/2021 IMPRESSION: 1. There is colonic constipation with mild dilatation raising concern for partial obstruction. 2. Mild mucosal thickening of the distal rectosigmoid colon is consistent with a nonspecific colitis. 3. Bladder wall enhances somewhat prominently raising concern for cystitis. Please correlate clinically. 4. Prostate gland is heterogeneous and enlarged. A&P Assessment and plan (1) Abnormal CT scan, colon: CT scan reviewed. I see the area that the radiologist is questioning, but it is difficult to say with any certainty that this represents an internal hernia. It seems unlikely but is possible that he could have an internal hernia in the absence of abdominal procedures, but it seems to be fairly asymptomatic in the way of obstructive symptoms if he does; in the face of chronic constipation issues, however, it is difficult to know for sure. Status: Acute (2) Chronic constipation: This is a longstanding issue for the patient, all of my life. It is fairly impressive on the CAT scan, but he is clearly not completely obstructed. I told him that I would like to try some oral laxatives to see if we can really get things moving. He is agreeable to that. Oral magnesium citrate/Dulcolax. Continue regular diet for now since the patient seems to be tolerating that fine. Status: Acute (3) Family history of colon cancer: The patient's mother has a history of colon cancer; he has never had a colonoscopy. Check serum CEA level. Status: Acute Consult Attestations Medical Necessity Statement: See admitting service's notation. Coding Level of Care Code Acute Personnel Associate for Naren Henry Diagnoses Abnormal CT scan, colon R93.3 Chronic constipation K59.09 Family history of colon cancer Z80.0
[2021-02-01] MEDS: magnesium citrate Btl 296 mL PO (16:07)
[2021-02-01] MEDS: bisacodyl 5 mg Tablet 40 MG PO (16:07)
--- NOTE | 2021-02-01 18:14 | PM.PN ---
Subjective Subjective: Interval history: Leukocytosis trending down at small loose bowel movement this morning, sent for C. difficile and bacterial and enteric panel testing. Abdominal x-ray was repeated today to follow-up on colonic distention, received call back from reading radiologist, concern for internal sigmoid herniation and resulting partial colonic obstruction. Patient is passing flatus fullness and baseline. Small loose bowel movement this morning. Denies any current abdominal pain. Medications: Reviewed: Yes Vitals/I&O/Wt Last Vital Signs Temp 98.6 F 02/01/21 15:59 Pulse 88 02/01/21 15:59 Resp 18 02/01/21 15:59 BP 137/84 02/01/21 15:59 Pulse Ox 96 02/01/21 15:59 02/01/21 02/01/21 02/01/21 06:59 14:59 22:59 Intake Total 170 / 2360 900 / 900 Output Total 1600 / 3400 1100 / 1100 Balance -1430 / -1040 -200 / -200 Physical Exam Narrative: EXAM NARRATIVE: GEN: Awake, alert and oriented, no acute distress CVS: S1S2 N RS: CTA B/L Abd: Mildly distended, bowel sounds present, no tenderness to palpation ALTERATION HAND: MS, wheelchair-bound Data : 02/01/21 03:13 02/01/21 03:13 Micro: Microbiology 02/01/21 09:00 C.difficile Toxin B Gene (PCR) - Final Stool - Stool Aspirate 01/30/21 16:33 Urine Culture - Preliminary Urine,Clean Catch 01/30/21 17:53 Blood Culture - Preliminary Blood NEGATIVE TO DATE 01/30/21 16:27 Blood Culture - Preliminary Blood NEGATIVE TO DATE 01/30/21 20:26 MRSA Culture - Final Nose Attestation for Other Data: I personally reviewed and interpreted the following: Other data: Laboratory Results WBC 18.8 10^3/uL (4.0-10.0) H 02/01/21 03:13 RBC 4.43 10^6/uL (4.1-5.3) 02/01/21 03:13 Hgb 13.6 g/dL (11.7-16.6) 02/01/21 03:13 Hct 41.4 % (42.0-52.0) L 02/01/21 03:13 MCV 93.5 fL (80-94) 02/01/21 03:13 MCH 30.7 pg (28.0-34.0) 02/01/21 03:13 MCHC 32.9 g/dL (30.0-36.0) 02/01/21 03:13 RDW 14.3 % (12.1-15.1) 02/01/21 03:13 Plt Count 298 10^3/cmm (130-400) 02/01/21 03:13 MPV 9.4 fL (7.4-10.4) 02/01/21 03:13 Neut % (Auto) 79.7 % 02/01/21 03:13 Lymph % (Auto) 10.3 % 02/01/21 03:13 Ward % (Auto) 7.8 % 02/01/21 03:13 Eos % (Auto) 1.2 % 02/01/21 03:13 Baso % (Auto) 0.5 % 02/01/21 03:13 Neut # (Auto) 14.99 10^3/uL (1.8-7.7) H 02/01/21 03:13 Lymph # (Auto) 1.9 10^3/uL (0.8-4.8) 02/01/21 03:13 Ward # (Auto) 1.5 10^3/uL (0.2-0.9) H 02/01/21 03:13 Eos # (Auto) 0.2 10^3/uL (0.0-0.8) 02/01/21 03:13 Baso # (Auto) 0.1 10^3/uL (0.0-0.1) 02/01/21 03:13 Nucleated RBC % (auto) 0 % 02/01/21 03:13 Nucleated RBCs # 0.0 /100WBC 02/01/21 03:13 Sodium 138 mmol/L (136-145) 02/01/21 03:13 Potassium 3.8 mmol/L (3.5-5.1) 02/01/21 03:13 Chloride 104 mmol/L (98-107) 02/01/21 03:13 Carbon Dioxide 25 mmol/L (22-29) 02/01/21 03:13 Anion Gap 12.8 (5-19) 02/01/21 03:13 BUN 11 mg/dL (8-23) 02/01/21 03:13 Creatinine 0.9 mg/dL (0.7-1.2) 02/01/21 03:13 GFR Calculation 84.2 mL/min (90-130) L 02/01/21 03:13 Glucose 124 mg/dL (65-115) H 02/01/21 03:13 Calculated Osmolality 287 mOsm/kg (285-295) 02/01/21 03:13 Lactic Acid 1.8 mmol/L (0.5-2.2) 01/30/21 16:27 Calcium 8.5 mg/dL (8.5-10.5) 02/01/21 03:13 Total Bilirubin 0.7 mg/dL (0.15-1.2) 01/31/21 03:46 AST 16 U/L (0-40) 01/31/21 03:46 ALT 18 U/L (0-41) 01/31/21 03:46 Alkaline Phosphatase 81 IU/L (40-130) 01/31/21 03:46 Creatine Kinase 44 U/L (39-308) 01/30/21 16:27 Total Protein 7.1 g/dL (6.6-8.7) 01/31/21 03:46 Albumin 3.8 g/dL (3.5-5.2) 01/31/21 03:46 Globulin 3.3 g/dL (1.3-4.6) 01/31/21 03:46 Lipase 18 U/L (13-60) 01/30/21 16:27 Procalcitonin 0.33 ng/mL (0-0.5) 01/31/21 03:46 Urine Color Yellow (Yellow) 01/30/21 16:33 Urine Appearance Clear (CLEAR) 01/30/21 16:33 Urine pH 5 (5-7) 01/30/21 16:33 Ur Specific [place] 1.015 (1.005-1.030) 01/30/21 16:33 Urine Protein Trace (Negative) 01/30/21 16:33 Urine Glucose (UA) Norm (Normal) 01/30/21 16:33 Urine Ketones Negative (Negative) 01/30/21 16:33 Urine Blood Trace (Negative) H 01/30/21 16:33 Urine Nitrate Negative (Negative) 01/30/21 16:33 Urine Bilirubin Neg (Negative) 01/30/21 16:33 Urine Urobilinogen 1 mg/dL (Negative) H 01/30/21 16:33 Ur Leukocyte Esterase 1+ (Negative) H 01/30/21 16:33 Urine RBC 0-4 /hpf (0-2) H 01/30/21 16:33 Urine WBC 15-25 /hpf (0-5) H 01/30/21 16:33 Ur Squamous Epith Cells 0-4 /hpf (0-5) H 01/30/21 16:33 Ur Transition Epith Cell Rare /hpf 01/30/21 16:33 Amorphous Sediment Not Reportable 01/30/21 16:33 Urine Bacteria Trace /hpf (NONE) 01/30/21 16:33 Urine Mucus 1+ /hpf 01/30/21 16:33 Vancomycin Trough 10.4 ug/mL (10-15) 02/01/21 03:13 Impressions Chest X-Ray 01/30/21 15:41 IMPRESSION: Mild elevation of the left hemidiaphragm associated with transposition of the splenic flexure colon superior to the spleen. This is a normal variant. Currently there is gaseous distension of the visualized splenic flexure and platelike atelectasis at the left lung base. Abdomen/Pelvis CT 01/30/21 17:17 IMPRESSION: 1. There is colonic constipation with mild dilatation raising concern for partial obstruction. 2. Mild mucosal thickening of the distal rectosigmoid colon is consistent with a nonspecific colitis. 3. Bladder wall enhances somewhat prominently raising concern for cystitis. Please correlate clinically. 4. Prostate gland is heterogeneous and enlarged. Radiation Dose CTDIVOL = (mGy): DLP = 1721.43 (mGy-cm) Abdomen X-Ray 02/01/21 10:36 IMPRESSION: 1. Persistent air distended colon extending to the left upper quadrant, and evidence of constipation proximally. 2. CT images demonstrate inter sigmoid/left paraduodenal and trans omental herniation of the sigmoid colon, resulting in 2 consecutive areas of colon narrowing and distension, and leading to obstruction with accumulation of stool throughout the colon proximally. THIS REPORT CONTAINS FINDINGS THAT MAY BE CRITICAL TO PATIENT CARE. The findings were verbally communicated via telephone conference with CHENTE COOK at 12:41 PM CDT on 02/01/2021. The findings were acknowledged and understood. A&P Assessment and plan (1) Sepsis: Sepsis, present on admission meets criteria with fever , tachycardia , leukocytosis, and possible UTI. Patient has a h/o chronic cytsitis for [facility] he on suppressive abx regimen with Cefdinir and doxycycline at least since 2 years from his PCP. Had cytoscopically injected botox for neurogenic bladder 2 days prior to onset of symptoms Though symptoms may be related to urinary source, urine cx has remained negative during this admission and pre operatively. Uncertain if meron op ppx was used for the procedure. No bacteremia evident. Findings of cytistis on CT not surprising given h/o neurogenci bladder and chronic cytistis, no clincial signs or symptoms of pyelonephritis Degree of leukocytosis and sepsis appear out of proportion to cystitis. Alternate sources on infection may be colitis vs incarcerated internal hernia, though patient denies any abdominal pain, nausea, vomiting. He is tolerating po intake, which makes incarcerated hernia less likely. For colitis, obtain C diff PCR testing, risk factors by way of chronic abx use. Also obtain enteric bacterial and parasite PCR. Currently resides on Food on the Table, drinking well watre which is filtered. Surgery consult for finding og sigmoid colon hernia , colonic distension, concern for partial obstruction Received enema x 2 in ER, also currently on oral laxatives Currently on empiric Zosyn, abx day 3 Status: Acute (2) UTI (urinary tract infection): as above Status: Acute (3) HTN (hypertension): Continue Amlodipine 10 mg and Benazepril 40 mg po daily Status: Acute (4) Multiple sclerosis: Continue Home medications. Status: Acute Additional A&P Information Code :Status :Full code DVT PPX:Lovenox Disposition :Home when ready Transfer out of ICU Attestations Medical Necessity Statement*: surgery consult, need for iv abx, transfer out of ICU Coding Level of Care Code Acute Respiratory Scientist for [facility] Fwd Diagnoses Sepsis A41.9 UTI (urinary tract infection) N39.0 HTN (hypertension) I10 Multiple sclerosis G35
[2021-02-01] MEDS: sennosides 8.6 mg Tablet 17.2 MG PO (20:48)
[2021-02-01] MEDS: enoxaparin 40 mg/0.4 mL Syringe SUBCUT (20:48)
[2021-02-01] MEDS: folic acid 1 mg Tablet PO (20:48)
[2021-02-01] MEDS: diazePAM 2 mg Tablet PO (20:48)
[2021-02-01] MEDS: tizanidine 4 mg Tablet PO (20:48)
[2021-02-01 21:17] LABS: Carcinoembryonic Antigen 11.7 ng/mL (0.0-4.7)
[2021-02-02] VITALS (8 sets, daily range): BP systolic 124–163; BP diastolic 75–93; PULSE 82–94; RESP 16–18; TEMP 36.7–37.4; O2SAT 92–97
[2021-02-02] MEDS: piperacillin-tazobactam 3.375 GM in sodium chloride 0.9% (plus) 50 ML IV ×2 (06:20→14:20)
[2021-02-02 06:26] LABS: Basophils # 0.1 10^3/uL (0.0-0.1); Basophils % 0.8 %; Eosinophils # 0.2 10^3/uL (0.0-0.8); Eosinophils % 1.9 %; Hematocrit 47.1 % (42.0-52.0); Hemoglobin 15.5 g/dL (11.7-16.6); Lymphocytes # 1.9 10^3/uL (0.8-4.8); Lymphocytes % 18.8 %; Mean Corpuscular HGB Conc 32.9 g/dL (30.0-36.0); Mean Corpuscular Volume 94.2 fL (80-94); Mean Platelet Volume 9.5 fL (7.4-10.4); Monocytes # 1.1 10^3/uL (0.2-0.9); Monocytes % 11.2 %; Neutrophils # 6.58 10^3/uL (1.8-7.7); Neutrophils % 66.8 %; Nucleated Red Blood Cells % 0 %; Platelet Count 378 10^3/cmm (130-400); Red Cell Distribution Width 14.2 % (12.1-15.1); White Blood Count 9.9 10^3/uL (4.0-10.0)
[2021-02-02 06:40] LABS: Anion Gap 16.1 (5-19); Blood Urea Nitrogen 11 mg/dL (8-23); Calcium 8.8 mg/dL (8.5-10.5); Carbon Dioxide 25 mmol/L (22-29); Chloride 101 mmol/L (98-107); Glomerular Filtration Rate 112.5 mL/min (90-130); Glucose 132 mg/dL (65-115); Osmolality Calculated 287 mOsm/kg (285-295); Potassium 4.1 mmol/L (3.5-5.1); Sodium 138 mmol/L (136-145)
--- NOTE | 2021-02-02 07:45 | P.PN_ITS ---
Subjective Subjective: Interval history: The patient denies abdominal pain. He says he continues to pass small amounts of flatus but try to have a bowel movement last night before he went to bed and did not have any results. Vitals/I&O/Wt Last Vital Signs Temp 98.9 F 02/02/21 03:53 Pulse 92 02/02/21 03:53 Resp 16 02/02/21 03:53 BP 124/78 02/02/21 03:53 Pulse Ox 92 02/02/21 03:53 02/01/21 02/02/21 02/02/21 22:59 06:59 14:59 Intake Total 410 / 1360 50 / 1360 Output Total 400 / 1500 Balance 410 / -140 -350 / -140 Physical Exam Narrative: EXAM NARRATIVE: The abdomen reveals some bowel sounds. It is completely soft and nontender. It seems much less protuberant this morning, but he is laying in a supine position in his bed whereas I examined him sitting up in his motorized wheelchair yesterday. Data : 02/02/21 05:10 02/02/21 05:10 Other Labs: Laboratory Tests 02/01/21 03:13 Carcinoembryonic Ag 11.7 H Micro: Microbiology 01/30/21 16:33 Urine Culture - Final Urine,Clean Catch 02/01/21 09:00 C.difficile Toxin B Gene (PCR) - Final Stool - Stool Aspirate A&P Assessment and plan (1) Abnormal CT scan, colon: CT scan reviewed. I see the area that the radiologist is questioning, but it is difficult to say with any certainty that this represents an internal hernia. It seems unlikely but is possible that he could have an internal hernia in the absence of abdominal procedures, but it seems to be fairly asymptomatic in the way of obstructive symptoms if he does; in the face of chronic constipation issues, however, it is difficult to know for sure. Status: Acute (2) Chronic constipation: This is a longstanding issue for the patient, all of my life. It is fairly impressive on the CAT scan, but he is clearly not completely obstructed. I told him that I would like to try some oral laxatives to see if we can really get things moving. He is agreeable to that. Continue oral laxatives. Status: Acute (3) Family history of colon cancer: The patient's mother has a history of colon cancer; he has never had a colonoscopy. Check serum CEA level. Status: Acute (4) Elevated CEA: The patient CEA level is elevated 11.7. I have discussed this with him and told him he definitely needs to consider a colonoscopy. Obviously the first step would be to try to get him prepped. He may have some interest in doing this closer to home in [place], but is willing to try some oral laxatives this morning. I will discuss the issue with Dr. Medina. Status: Acute Attestations Medical Necessity Statement*: See admitting service's notation. Coding Level of Care Code Acute Individualized Education Plan Aide for Naren Henry Diagnoses Abnormal CT scan, colon R93.3 Chronic constipation K59.09 Family history of colon cancer Z80.0 Elevated CEA R97.0
--- NOTE | 2021-02-02 08:23 | PC.NURSE ---
Patient had call light and was wanting shirt changed. Both SPN's went in and stopped IV and disconnected so patient could change shirt and clean up. Patient reconnected to IV when done
[2021-02-02] MEDS: lisinopril 20 mg Tablet 40 MG PO (08:38)
[2021-02-02] MEDS: amlodipine 10 mg Tablet PO (08:38)
[2021-02-02] MEDS: docusate sodium 100 mg Capsule PO ×2 (08:38→17:55)
[2021-02-02] MEDS: bisacodyl 5 mg Tablet 40 MG PO (09:56)
[2021-02-02] MEDS: magnesium citrate Btl 296 mL PO (09:58)
--- NOTE | 2021-02-02 11:16 | PC.SOCIAL ---
IMM Update Pg. 2 of IMM updated and reviewed with patient and his . Copy provided.
--- NOTE | 2021-02-02 14:29 | P.PN_ITS ---
Subjective Subjective: Interval history: Leukocytosis now resolved at 9.9. T-max 99.3 over the last 24 hours. C. difficile PCR returned negative. Medications: Reviewed: Yes Vitals/I&O/Wt Last Vital Signs Temp 98.8 F 02/02/21 11:53 Pulse 87 02/02/21 11:53 Resp 18 02/02/21 11:53 BP 142/84 02/02/21 11:53 Pulse Ox 97 02/02/21 11:53 02/01/21 02/02/21 02/02/21 22:59 06:59 14:59 Intake Total 410 / 1310 50 / 1360 410 / 410 Output Total 400 / 1500 Balance 410 / 210 -350 / -140 410 / 410 Physical Exam Narrative: EXAM NARRATIVE: GEN: Awake, alert and oriented, no acute distress CVS: S1S2 N RS: CTA B/L Abd: Mildly distended, bowel sounds present, no tenderness to palpation DIRECTOR QUALITY ASSURANCE: MS, wheelchair-bound Data : 02/02/21 05:10 02/02/21 05:10 Micro: Microbiology 01/30/21 16:33 Urine Culture - Final Urine,Clean Catch 02/01/21 09:00 C.difficile Toxin B Gene (PCR) - Final Stool - Stool Aspirate A&P Assessment and plan (1) Sepsis: Sepsis, present on admission meets criteria with fever , tachycardia , leukocytosis, and possible UTI. Patient has a h/o chronic cytsitis for [facility] he on suppressive abx regimen with Cefdinir and doxycycline at least since 2 years from his PCP. Had cytoscopically injected botox for neurogenic bladder 2 days prior to onset of symptoms Though symptoms may be related to urinary source, urine cx has remained negative during this admission and pre operatively. Uncertain if meron op ppx was used for the procedure. No bacteremia evident. Findings of cytistis on CT not surprising given h/o neurogenci bladder and chronic cytistis, no clincial signs or symptoms of pyelonephritis Degree of leukocytosis and sepsis appear out of proportion to cystitis. Alternate sources on infection may be colitis vs incarcerated internal hernia, though patient denies any abdominal pain, nausea, vomiting. He is tolerating po intake, which makes incarcerated hernia less likely. Appreciate surgical evaluation. Patient does not currently have an acute abdomen, however significant cons tipation and stool retention is noted. Received enema x 2 in ER, also currently on oral laxatives , no bowel movement yet Currently on empiric Zosyn, abx day 4 Status: Acute (2) UTI (urinary tract infection): as above Status: Acute (3) HTN (hypertension): Continue Amlodipine 10 mg and Benazepril 40 mg po daily Status: Acute (4) Multiple sclerosis: Continue Home medications. Status: Acute (5) Elevated CEA: Elevated CEA level with signs of colonic distention, positive family history for colon cancer patient needs further evaluation with a colonoscopy, however he is keen to get this done closer to his home. Status: Acute Additional A&P Information Code :Status :Full code DVT PPX:Lovenox Disposition :Home when ready Improving signs of sepsis, leukocytosis now resolved, however patient has still not had a bowel movement. No acute abdomen, however colonic dilatation is pretty marked. Awaiting assurance of bowel function prior to discharge home. Would additionally benefit from an empiric 5-day course of IV antibiotics prior to transitioning to oral medication. Attestations Medical Necessity Statement*: Ongoing need for IV antibiotics, ongoing need to continue laxatives and assurance of bowel function prior to discharge Coding Level of Care Code Acute Mortician Helper for [facility] Fwd Diagnoses Sepsis A41.9 UTI (urinary tract infection) N39.0 HTN (hypertension) I10 Multiple sclerosis G35 Elevated CEA R97.0
[2021-02-02] MEDS: folic acid 1 mg Tablet PO (21:05)
[2021-02-02] MEDS: tizanidine 4 mg Tablet PO (21:06)
[2021-02-02] MEDS: diazePAM 2 mg Tablet PO (21:06)
[2021-02-02] MEDS: enoxaparin 40 mg/0.4 mL Syringe SUBCUT (21:06)
[2021-02-03] MEDS: piperacillin-tazobactam 3.375 GM in sodium chloride 0.9% (plus) 50 ML IV (01:52)
[2021-02-03 03:28] VITALS: BP 160/81; PULSE 84; RESP 16; TEMP 36.7; O2SAT 94
[2021-02-03 08:00] VITALS: BP 156/91; PULSE 85; RESP 18; TEMP 36.4; O2SAT 98
[2021-02-03 08:19] LABS: Basophils # 0.1 10^3/uL (0.0-0.1); Basophils % 0.9 %; Eosinophils # 0.1 10^3/uL (0.0-0.8); Eosinophils % 1.5 %; Hematocrit 49.3 % (42.0-52.0); Lymphocytes # 1.6 10^3/uL (0.8-4.8); Lymphocytes % 17.7 %; Mean Corpuscular HGB Conc 32.5 g/dL (30.0-36.0); Mean Corpuscular Hemoglobin 30.7 pg (28.0-34.0); Mean Corpuscular Volume 94.4 fL (80-94); Monocytes % 10.3 %; Neutrophils # 6.38 10^3/uL (1.8-7.7); Neutrophils % 69.1 %; Nucleated Red Blood Cells % 0 %; Platelet Count 376 10^3/cmm (130-400); Red Blood Count 5.22 10^6/uL (4.1-5.3); Red Cell Distribution Width 14.1 % (12.1-15.1); White Blood Count 9.2 10^3/uL (4.0-10.0)
--- NOTE | 2021-02-03 08:45 | P.PN_ITS ---
Subjective Subjective: Interval history: The patient started having bowel movements yesterday afternoon and has had 4?5 so far. He is anxious to be discharged. Vitals/I&O/Wt Last Vital Signs Temp 97.6 F 02/03/21 08:00 Pulse 85 02/03/21 08:00 Resp 18 02/03/21 08:00 BP 156/91 02/03/21 08:00 Pulse Ox 98 02/03/21 08:00 02/02/21 02/03/21 02/03/21 22:59 06:59 14:59 Intake Total 850 / 1260 290 / 290 Balance 850 / 1260 290 / 290 Physical Exam Narrative: EXAM NARRATIVE: Abdomen remains soft and nontender. Data : 02/03/21 08:00 02/02/21 05:10 Micro: Microbiology 01/30/21 16:33 Urine Culture - Final Urine,Clean Catch A&P Assessment and plan (1) Abnormal CT scan, colon: CT scan reviewed. I see the area that the radiologist is questioning, but it is difficult to say with any certainty that this represents an internal hernia. It seems unlikely but is possible that he could have an internal hernia in the absence of abdominal procedures, but it seems to be fairly asymptomatic in the way of obstructive symptoms if he does; in the face of chronic constipation issues, however, it is difficult to know for sure. Status: Acute (2) Chronic constipation: The patient is having multiple bowel movements now. Status: Acute (3) Family history of colon cancer: The patient's mother has a history of colon cancer; he has never had a colonoscopy. Status: Acute (4) Elevated CEA: The patient CEA level is elevated 11.7. I have discussed this with him and told him he definitely needs to consider a colonoscopy. He voiced understanding, and intends to follow-up with this closer to home in [place]. Status: Acute Attestations Medical Necessity Statement*: See admitting service's notation. Coding Level of Care Code Acute Blocking Machine Operator Second for Naren Henry Diagnoses Abnormal CT scan, colon R93.3 Chronic constipation K59.09 Family history of colon cancer Z80.0 Elevated CEA R97.0
[2021-02-03 08:46] LABS: Alanine Aminotransferase 41 U/L (0-41); Albumin Level 3.9 g/dL (3.5-5.2); Alkaline Phosphatase 82 IU/L (40-130); Anion Gap 15.2 (5-19); Aspartate Amino Transferase 24 U/L (0-40); Blood Urea Nitrogen 12 mg/dL (8-23); Carbon Dioxide 26 mmol/L (22-29); Chloride 101 mmol/L (98-107); Globulin 4.2 g/dL (1.3-4.6); Glomerular Filtration Rate 96.4 mL/min (90-130); Glucose 126 mg/dL (65-115); Osmolality Calculated 287 mOsm/kg (285-295); Potassium 4.2 mmol/L (3.5-5.1); Sodium 138 mmol/L (136-145); Total Bilirubin 0.4 mg/dL (0.15-1.2); Total Protein 8.1 g/dL (6.6-8.7)
--- NOTE | 2021-02-03 09:58 | PM.DCS ---
Discharge Providers Date of Admission: 01/30/21 18:24 Date of Discharge: February 03, 2021 Attending Provider at Admission: Nj Moody MD Attending Provider at Discharge: Jodi Cook MD Diagnoses at Discharge Discharge Diagnosis (1) Sepsis: Status: Acute Qualifiers: Sepsis type: sepsis due to unspecified organism Sepsis acute organ dysfunction status: without acute organ dysfunction Qualified Code(s): A41.9 - Sepsis, unspecified organism (2) Abnormal CT scan, colon: Status: Acute (3) Chronic constipation: Status: Acute (4) Family history of colon cancer: Status: Acute (5) Elevated CEA: Status: Acute Reason for Visit Reason for Visit: fever Hospital Course Hospital Course German Wright is a 65 year old male with past medical history of hypertension, multiple sclerosis, recurrent UTI due to neurogenic bladder needing intermittent self cath, on chronic suppressive therapy on cefdinir 300 mg p.o. daily, as well as doxycycline 100 mg p.o. 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 Pertinent labs included WBC:40K, lactic acid:1.8, urinalysis: Urine WBC:15-25/HPF, urine leukocyte Estrace: 1+, urine nitrite: Negative. He was admitted for sepsis, source presumed to be UTI given historical risk factors, though urine cx did remain negative during admission. No bacteremia evident. Ct abdomen showed cystitis and possible colitis vs incarcerated internal hernia, though patient denies any abdominal pain, nausea, vomiting. He is tolerating po intake, which makes incarcerated hernia less likely. Additionally noted was distended colon which was concerning for colonic obstruction, Surgery was consulted, however patient never developed any signs of acute abdomen. He did complain of constipation, which is also chronic for him, however with discovery of colonic distension, he was given enemas and laxatives to ensure bowel function is adequate prior to discharge. He was able to have several bowel movements on day of discharge, abdomen today appears less distended. Otherwise benign exam. He received treatment with iv Zosyn between 02/02-02/03, leukocytosis resolved and remained stable for 48 hrs, he has been afebrile and hemodynamically stable. He is being discharged with recommendations to continue his chronic suppressive regimen of doxycycline and cefdinir, with addition of flagyl for anaerobic coverage over the next 2 days. Physical Exam Narrative: EXAM NARRATIVE: GEN: Awake, alert and oriented, no acute distress CVS: S1S2 N RS: CTA B/L Abd: Soft, nt/nd , bs+ Discharge Data Data Completed and Pending: Completed Studies During Hospitalization Category Date Time Status CT abdomen pelvis w con* [id number] Stat Cat Scan 01/30/21 17:17 Completed XR abdomen 1V* [id number] Routine Exams 02/01/21 10:36 Completed XR chest 1[place] bipin [place] [id number] Stat Exams 01/30/21 15:41 Completed Pending at discharge Category Date Time Status Blood Culture Sta t Lab 01/30/21 17:53 Results Enteric Bacterial Panel by PCR Rout ine Lab 02/01/21 09:00 Received Enteric Parasite Panel by PCR Routi ne Lab 02/01/21 09:00 Received Labs from last 24 hours 02/03/21 02/03/21 08:00 08:00 WBC 9.2 RBC 5.22 Hgb 16.0 Hct 49.3 MCV 94.4 H MCH 30.7 MCHC 32.5 RDW 14.1 Plt Count 376 MPV 9.0 Neut % (Auto) 69.1 Lymph % (Auto) 17.7 [place] % (Auto) 10.3 Eos % (Auto) 1.5 Baso % (Auto) 0.9 Neut # (Auto) 6.38 Lymph # (Auto) 1.6 [place] # (Auto) 1.0 H Eos # (Auto) 0.1 Baso # (Auto) 0.1 Nucleated RBC % (a uto) 0 Nucleated RBCs # 0.0 Sodium 138 Potassium 4.2 Chloride 101 Carbon Dioxide 26 Anion Gap 15.2 BUN 12 Creatinine 0.8 GFR Calculation 96.4 Glucose 126 H Calculated Osmolal ity 287 Calcium 9.0 Total Bilirubin 0.4 AST 24 ALT 41 Alkaline Phosphata se 82 Total Protein 8.1 Albumin 3.9 Globulin 4.2 Imaging^: CT Abd/Pel: Attestation: I personally reviewed and interpreted this imaging study as follows: Radiologist's impression: Laboratory Results WBC 9.2 10^3/uL (4.0- 10.0) 02/03/21 08:00 RBC 5.22 10^6/uL (4.1 -5.3) 02/03/21 08:00 Hgb 16.0 g/dL (11.7-1 6.6) 02/03/21 08:00 Hct 49.3 % (42.0-52.0 ) 02/03/21 08:00 MCV 94.4 fL (80-94) H 02/03/21 08:00 MCH 30.7 pg (28.0-34. 0) 02/03/21 08:00 MCHC 32.5 g/dL (30.0-3 6.0) 02/03/21 08:00 RDW 14.1 % (12.1-15.1 ) 02/03/21 08:00 Plt Count 376 10^3/cmm (130 -400) 02/03/21 08:00 MPV 9.0 fL (7.4-10.4) 02/03/21 08:00 Neut % (Auto) 69.1 % 02/03/21 08:00 Lymph % (Auto) 17.7 % 02/03/21 08:00 [place] % (Auto) 10.3 % 02/03/21 08:00 Eos % (Auto) 1.5 % 02/03/21 08:00 Baso % (Auto) 0.9 % 02/03/21 08:00 Neut # (Auto) 6.38 10^3/uL (1.8 -7.7) 02/03/21 08:00 Lymph # (Auto) 1.6 10^3/uL (0.8- 4.8) 02/03/21 08:00 [place] # (Auto) 1.0 10^3/uL (0.2- 0.9) H 02/03/21 08:00 Eos # (Auto) 0.1 10^3/uL (0.0- 0.8) 02/03/21 08:00 Baso # (Auto) 0.1 10^3/uL (0.0- 0.1) 02/03/21 08:00 Nucleated RBC % (a uto) 0 % 02/03/21 08:00 Nucleated RBCs # 0.0 /100WBC 02/03/21 08:00 Sodium 138 mmol/L (136-1 45) 02/03/21 08:00 Potassium 4.2 mmol/L (3.5-5 .1) 02/03/21 08:00 Chloride 101 mmol/L (98-10 7) 02/03/21 08:00 Carbon Dioxide 26 mmol/L (22-29) 02/03/21 08:00 Anion Gap 15.2 (5-19) 02/03/21 08:00 BUN 12 mg/dL (8-23) 02/03/21 08:00 Creatinine 0.8 mg/dL (0.7-1. 2) 02/03/21 08:00 GFR Calculation 96.4 mL/min (90-1 30) 02/03/21 08:00 Glucose 126 mg/dL (65-115 ) H 02/03/21 08:00 Calculated Osmolal ity 287 mOsm/kg (285- 295) 02/03/21 08:00 Lactic Acid 1.8 mmol/L (0.5-2 .2) 01/30/21 16:27 Calcium 9.0 mg/dL (8.5-10 .5) 02/03/21 08:00 Total Bilirubin 0.4 mg/dL (0.15-1 .2) 02/03/21 08:00 AST 24 U/L (0-40) 02/03/21 08:00 ALT 41 U/L (0-41) 02/03/21 08:00 Alkaline Phosphata se 82 IU/L (40-130) 02/03/21 08:00 Creatine Kinase 44 U/L (39-308) 01/30/21 16:27 Total Protein 8.1 g/dL (6.6-8.7 ) 02/03/21 08:00 Albumin 3.9 g/dL (3.5-5.2 ) 02/03/21 08:00 Globulin 4.2 g/dL (1.3-4.6 ) 02/03/21 08:00 Lipase 18 U/L (13-60) 01/30/21 16:27 Carcinoembryonic A g 11.7 ng/mL (0.0-4 .7) H 02/01/21 03:13 Procalcitonin 0.33 ng/mL (0-0.5 ) 01/31/21 03:46 Urine Color Yellow (Yellow) 01/30/21 16:33 Urine Appearance Clear (CLEAR) 01/30/21 16:33 Urine pH 5 (5-7) 01/30/21 16:33 Ur Specific Gravit y 1.015 (1.005-1.0 30) 01/30/21 16:33 Urine Protein Trace (Negative) 01/30/21 16:33 Urine Glucose (UA) Norm (Normal) 01/30/21 16:33 Urine Ketones Negative (Negati ve) 01/30/21 16:33 Urine Blood Trace (Negative) H 01/30/21 16:33 Urine Nitrate Negative (Negati ve) 01/30/21 16:33 Urine Bilirubin Neg (Negative) 01/30/21 16:33 Urine Urobilinogen 1 mg/dL (Negative ) H 01/30/21 16:33 Ur Leukocyte Maryjane ase 1+ (Negative) H 01/30/21 16:33 Urine RBC 0-4 /hpf (0-2) H 01/30/21 16:33 Urine WBC 15-25 /hpf (0-5) H 01/30/21 16:33 Ur Squamous Epith Cells 0-4 /hpf (0-5) H 01/30/21 16:33 Ur Transition Epit h Cell Rare /hpf 01/30/21 16:33 Amorphous Sediment Not Reportable 01/30/21 16:33 Urine Bacteria Trace /hpf (NONE) 01/30/21 16:33 Urine Mucus 1+ /hpf 01/30/21 16:33 Vancomycin Trough 10.4 ug/mL (10-15 ) 02/01/21 03:13 Impressions Chest X-Ray 01/30/21 15:41 IMPRESSION: Mild elevation of the left hemidiaphragm associated with transposition of the splenic flexure colon superior to the spleen. This is a normal variant. Currently there is gaseous distension of the visualized splenic flexure and platelike atelectasis at the left lung base. Abdomen/Pelvis CT 01/30/21 17:17 IMPRESSION: 1. There is colonic constipation with mild dilatation raising concern for partial obstruction. 2. Mild mucosal thickening of the distal rectosigmoid colon is consistent with a nonspecific colitis. 3. Bladder wall enhances somewhat prominently raising concern for cystitis. Please correlate clinically. 4. Prostate gland is heterogeneous and enlarged. Radiation Dose CTDIVOL = (mGy): DLP = 1721.43 (mGy-cm) Abdomen X-Ray 02/01/21 10:36 IMPRESSION: 1. Persistent air distended colon extending to the left upper quadrant, and evidence of constipation proximally. 2. CT images demonstrate inter sigmoid/left paraduodenal and trans omental herniation of the sigmoid colon, resulting in 2 consecutive areas of colon narrowing and distension, and leading to obstruction with accumulation of stool throughout the colon proximally. THIS REPORT CONTAINS FINDINGS THAT MAY BE CRITICAL TO PATIENT CARE. The findings were verbally communicated via telephone conference with JODI COOK at 12:41 PM CDT on 02/01/2021. The findings were acknowledged and understood. Vitals: Last Vital Signs Temp 97.6 F 02/03/21 08:00 Pulse 85 02/03/21 08:00 Resp 18 02/03/21 08:00 BP 156/91 02/03/21 08:00 Pulse Ox 98 02/03/21 08:00 Discharge Plan Discharge Patient Disposition: Home Condition: Stable Prescriptions: New metronidazole [Flagyl] 500 mg tablet 500 mg PO Q8H 2 Days Qty: 6 RF: 0 Continued doxycycline hyclate 100 mg capsule 100 mg PO BID RF: 0 atorvastatin 10 mg tablet 10 mg PO EVERY OTHER DAY RF: 0 tizanidine 4 mg Tablet 4 mg PO BEDTIME RF: 0 amantadine HCl 100 mg capsule 100 mg PO DAILY RF: 0 methotrexate sodium 2.5 mg Tablet 7.5 mg PO Q7D RF: 0 diazepam 2 mg tablet 2 mg PO BEDTIME RF: 0 folic acid 1 mg Tablet 1 mg PO BEDTIME RF: 0 montelukast 10 mg tablet 10 mg PO DAILY RF: 0 cefdinir 300 mg capsule 300 mg PO DAILY RF: 0 amlodipine-benazepril 10-40 mg capsule 1 cap PO DAILY RF: 0 Ampyra 10 mg Tablet Extended Release 12 Hr 10 mg PO Q12H RF: 0 Discharge Orders: Discharge Order (Routine); Ordered 02/03/21 Ordered By: Jodi Cook Referrals: primary care,physician [Other] - 7-10 days Discharge Diet: Advance as tolerated Discharge Activity: Resume usual activity Patient Instructions: Opioid Safety Discharge Attestations Time Spent in Discharge Care*: greater than 30 min Specific Discharge Activities: educating patient and educating and/or supporting family/caregiver Quality Metrics Clinical Quality Measures During this hospital stay, did patient experience: None Coding Level of Care Code Acute Chg FW DC note Diagnoses Sepsis A41.9 Sepsis type: sepsis due to unspecified organism Sepsis acute organ dysfunction status: without acute organ dysfunction Abnormal CT scan, colon R93.3 Chronic constipation K59.09 Family history of colon cancer Z80.0 Elevated CEA R97.0
[2021-02-03] MEDS: amlodipine 10 mg Tablet PO (10:04)
[2021-02-03] MEDS: atorvastatin 40 mg Tablet 20 MG PO (10:04)
[2021-02-03] MEDS: lisinopril 20 mg Tablet 40 MG PO (10:05)
[2021-02-03 11:06] VITALS: BP 147/64; PULSE 88; RESP 18; TEMP 37; O2SAT 96
[2021-02-03 13:23] VITALS: BP 147/64; PULSE 88; RESP 18; TEMP 37; O2SAT 96
== END 2021-02-03 12:00 | disposition home or self-care (01) | DRG 872 ==
LOC: ER 15:39 → ICU 18:57 → MEDSURG 02-01 14:01
PROVIDERS: Student in an Organized Health Care Education/Training Program; Surgery; Admitting Provider Internal Medicine; Emergency Provider Family Medicine; Visit Provider Student in an Organized Health Care Education/Training Program
DX: A41.9 Sepsis, unspecified organism (principal); G35 Multiple sclerosis; K59.09 Other constipation; K52.9 Noninfective gastroenteritis and colitis, unspecified; N30.20 Other chronic cystitis without hematuria; R97.0 Elevated carcinoembryonic antigen [CEA]; I10 Essential (primary) hypertension; Z80.0 Family history of malignant neoplasm of digestive organs; E78.5 Hyperlipidemia, unspecified; R01.1 Cardiac murmur, unspecified; N31.9 Neuromuscular dysfunction of bladder, unspecified; Z99.3 Dependence on wheelchair; Z79.899 Other long term (current) drug therapy
CPT/HCPCS: 12345; 36415; 71045; 74018; 74177; 80048; 80053; 80202; 81001; 82378; 82550; 83605; 83690; 84145; 85025; 87040; 87086; 87493; 87506; 87641; 96365; 96367; 96372; 99285; J1650; J2543; J3370; J7030; J7050; Q9967

== ENCOUNTER 2022-03-24 10:17 | Emergency (ER) | payer MEDICARE, OTHER, SELFPAY ==
[2022-03-24 10:36] VITALS: BP 170/82; PULSE 80; RESP 18; O2SAT 97; BMI 26.4
[2022-03-24 10:40] VITALS: BP 170/82; PULSE 83; O2SAT 97
--- NOTE | 2022-03-24 10:48 | W.ED.SKABFB ---
HPI - Skin/Abscess/Foreign Bdy General: Chief complaint: Skin/Abscess/Foreign Body Stated complaint: sores on buttocks Time Seen by Provider: 03/24/22 10:20 Source: patient and family () Mode of arrival: wheelchair Limitations: no limitations History of Present Illness: Patient is a very nice 66-year-old male who presents to ED today along with his for concerns of a sore to his buttock region that they first noticed a couple of days ago. states patient had a similar sore about a year ago that was treated successfully with [id number] topical medications such as petroleum and zinc oxide. Patient has a history of MS and is confined to a wheelchair. They have not noticed any drainage or foul smell from the wound. MD complaint: other (ulcer/sore) Onset (ago): day(s) Tetanus up to date: yes Location: buttocks Severity: mild Relieving factors: none Exacerbating factors: none Associated symptoms: Reports no associated symptoms; Deny chills or fever(s) Treatments prior to arrival: bandages Review of Systems Const: Denies: fever(s), chills, body aches, fatigue or malaise Skin/Breast: Reports: other (ulcer to buttock) [facility] ED PFSH: Medical History Chronic constipation Family history of colon cancer Heart murmur HTN (hypertension) Hyperlipidemia Multiple sclerosis UTI (urinary tract infection) Recurrent Surgical History History of tonsillectomy S/P Botox injection Multiple -- urinary bladder neck Social History Smoking and tobacco status: never smoked Alcohol intake: current Physical Exam Const: COMMON NORMALS: no acute distress, patient oriented x3, no limitations and alert GENERAL APPEARANCE: cooperative ORIENTATION/CONSCIOUSNESS: Yes awake, Yes oriented to person, Yes oriented to place and Yes oriented to time Resp: COMMON NORMALS: normal respiratory effort Cardio: COMMON NORMALS: regular rate and regular rhythm RATE: regular rate RHYTHM: regular rhythm Back/Pelvis: BACK IMAGE (MALE): 1. 1cm stage II ulcer present without any surrounding erythema, warmth or drainage Neuro: COMMON NORMALS: patient oriented x3 SENSORIUM/ORIENTATION: Yes alert, Yes oriented to person, Yes oriented to place and Yes oriented to time Skin: NARRATIVE SKIN EXAM: see above for pertinent skin findings Course Vital Signs: Vital signs: Vital Signs Pulse Rate 80 03/24/22 10:36 Respiratory Rate 18 03/24/22 10:36 Blood Pressure 170/82 03/24/22 10:36 Pulse Oximetry 97 03/24/22 10:36 MDM - Skin/Abscess/Foreign Bdy Medicial Decision Making Patient has a very small 1 cm stage II ulcer to his right sacral region. There is no surrounding redness or warmth. No drainage or odor. His vital signs are normal. At this time I recommend we get patient set up with wound care they can begin working on getting ulcer to heal. I don't see any indications for labwork or systemic antibiotics on our end at this time. I will have patient start doing some mupirocin ointment and he was given instructions for non-stick dressing changes. Return to ED precautions given. Discharge Plan Discharge Patient Disposition: Home Clinical Impression: Decubitus ulcer of sacral region, stage 2 Condition: Stable Prescriptions: New mupirocin 2 % ointment 1 applic topical DAILY Qty: 15 0RF No Action doxycycline hyclate 100 mg capsule 100 mg PO BID 0RF atorvastatin 10 mg tablet 10 mg PO EVERY OTHER DAY 0RF tizanidine 4 mg Tablet 4 mg PO BEDTIME 0RF amantadine HCl 100 mg capsule 100 mg PO DAILY 0RF methotrexate sodium 2.5 mg Tablet 7.5 mg PO Q7D 0RF Rx Instructions: fridays diazepam 2 mg tablet 2 mg PO BEDTIME 0RF folic acid 1 mg Tablet 1 mg PO BEDTIME 0RF montelukast 10 mg tablet 10 mg PO DAILY 0RF amlodipine-benazepril 10-40 mg capsule 1 cap PO DAILY 0RF dalfampridine [Ampyra] 10 mg Tablet Extended Release 12 Hr 10 mg PO Q12H 0RF Vitamin B-12 100 mcg Tablet 100 mcg PO DAILY 0RF Vitamin C 100 mg Tablet 100 mg PO DAILY 0RF zinc 50 mg Tablet 50 mg PO DAILY 0RF Multi M Vitamin Tablet 1 tab PO DAILY 0RF Vitamin D3 25 mcg (1,000 unit) Capsule 25 mcg PO DAILY 0RF tadalafil 10 mg Tablet 10 mg PO DAILY PRN (Reason: Sexual Activity) 0RF Rx Instructions: administer approximately 30min before sexual activity; do not use more than 1 dose per 24hrs Discharge Orders: Discharge ED (Routine); Ordered 03/24/22 Ordered By: Lesvia Yap Patient Instructions: Decubitus Ulcers Activity Restrictions/Additional Instructions: As we have discussed case management should contact you shortly to set you up with an appointment for wound care so they can begin treatment for his ulcer. In the meantime we have discussed wound care and management at home and you have been provided with instructions regarding this as well as supplies for dressing changes. You need to return to the emergency department for worsening skin breakdown, redness or warmth surrounding the wound, purulent or foul-smelling drainage, or any other concerns you may have. Coding Level of Care Code ED Automobile Mechanic Motor for Naren Henry Exam Expanded Problem Focused
[2022-03-24 11:48] VITALS: BP 161/74; PULSE 82; O2SAT 95
--- NOTE | 2022-03-25 06:32 | DCPLANNER ---
celebrity manager was asked to schedule a follow up appointment for patient with Wound Care. celebrity manager called the Wound Care clinic, spoke with Anna, gave clinic patients information. A follow up appointment was scheduled for March at 2:30 with Stefani. Patient is aware of appointment.
== END 2022-03-24 11:35 | disposition home or self-care (01) ==
PROVIDERS: Emergency Provider Physician Assistant
DX: L89.152 Pressure ulcer of sacral region, stage 2 (principal); I10 Essential (primary) hypertension; G35 Multiple sclerosis
CPT/HCPCS: 99283

== ENCOUNTER → 2022-03-29 14:21 | Outpatient (BNVA) | payer MEDICARE, OTHER, SELFPAY | PROVIDERS: Visit Provider Nurse Practitioner Family | DX: I96 Gangrene, not elsewhere classified (principal); L89.152 Pressure ulcer of sacral region, stage 2 | CPT/HCPCS: 11042; 99203; 99213 ==

== ENCOUNTER → 2022-04-05 10:42 | Outpatient (BNVA) | payer MEDICARE, OTHER, SELFPAY | PROVIDERS: Visit Provider Nurse Practitioner Family | DX: Z09 Encounter for follow-up examination after completed treatment for conditions other than malignant neoplasm (principal) | CPT/HCPCS: 99212 ==

== ENCOUNTER → 2023-01-11 13:19 | Outpatient (BNVA) | payer MEDICARE, OTHER, SELFPAY | PROVIDERS: Visit Provider Dermatology | DX: L57.0 Actinic keratosis (principal); L81.4 Other melanin hyperpigmentation; L57.8 Other skin changes due to chronic exposure to nonionizing radiation; L85.3 Xerosis cutis; Z71.89 Other specified counseling | CPT/HCPCS: 11102; 17004; 99203 ==

== ENCOUNTER → 2023-06-08 14:50 | Outpatient (BNVA) | payer MEDICARE, OTHER, SELFPAY | PROVIDERS: Visit Provider Nurse Practitioner Family | DX: L08.89 Other specified local infections of the skin and subcutaneous tissue (principal); L81.4 Other melanin hyperpigmentation; L57.8 Other skin changes due to chronic exposure to nonionizing radiation; L57.0 Actinic keratosis | CPT/HCPCS: 17000; 99213 ==

== ENCOUNTER → 2023-12-14 13:56 | Outpatient (BNVA) | payer MEDICARE, OTHER, SELFPAY | PROVIDERS: Visit Provider Nurse Practitioner Family | DX: L57.0 Actinic keratosis (principal); L08.89 Other specified local infections of the skin and subcutaneous tissue; L81.4 Other melanin hyperpigmentation; L57.8 Other skin changes due to chronic exposure to nonionizing radiation; L89.151 Pressure ulcer of sacral region, stage 1; L74.519 Primary focal hyperhidrosis, unspecified; L74.513 Primary focal hyperhidrosis, soles | CPT/HCPCS: 17000; 99214 ==

== ENCOUNTER → 2024-03-07 12:42 | Outpatient (BNVA) | payer MEDICARE, OTHER, SELFPAY | PROVIDERS: Visit Provider Nurse Practitioner Family | DX: L57.0 Actinic keratosis (principal); L81.4 Other melanin hyperpigmentation; L57.8 Other skin changes due to chronic exposure to nonionizing radiation; L89.151 Pressure ulcer of sacral region, stage 1 | CPT/HCPCS: 17000; 99213 ==

== ENCOUNTER → 2024-07-25 12:47 | Outpatient (BNVA) | payer MEDICARE, OTHER, SELFPAY | PROVIDERS: Visit Provider Nurse Practitioner Family | DX: L81.4 Other melanin hyperpigmentation (principal); L57.8 Other skin changes due to chronic exposure to nonionizing radiation; L89.151 Pressure ulcer of sacral region, stage 1; D22.4 Melanocytic nevi of scalp and neck; L82.1 Other seborrheic keratosis; L57.0 Actinic keratosis; D48.5 Neoplasm of uncertain behavior of skin | CPT/HCPCS: 11102; 17004; 99213 ==

== ENCOUNTER → 2025-01-01 14:44 | Outpatient (BNVA) | payer MEDICARE, OTHER, SELFPAY | PROVIDERS: Visit Provider Nurse Practitioner Family | DX: D22.39 Melanocytic nevi of other parts of face (principal); L81.4 Other melanin hyperpigmentation; L57.8 Other skin changes due to chronic exposure to nonionizing radiation; L82.1 Other seborrheic keratosis; L57.0 Actinic keratosis | CPT/HCPCS: 17004; 99213 ==

== ENCOUNTER → 2025-07-01 15:05 | Outpatient (BNVA) | payer MEDICARE, OTHER, SELFPAY | PROVIDERS: Visit Provider Nurse Practitioner Family | DX: L81.4 Other melanin hyperpigmentation (principal); L57.8 Other skin changes due to chronic exposure to nonionizing radiation; L82.1 Other seborrheic keratosis; D18.01 Hemangioma of skin and subcutaneous tissue; D48.5 Neoplasm of uncertain behavior of skin; L57.0 Actinic keratosis | CPT/HCPCS: 11102; 17000; 99213 ==

== ENCOUNTER → 2025-08-12 10:48 | Outpatient (BNVA) | payer MEDICARE, OTHER, SELFPAY | PROVIDERS: Visit Provider Nurse Practitioner Family | DX: L57.8 Other skin changes due to chronic exposure to nonionizing radiation (principal); D18.01 Hemangioma of skin and subcutaneous tissue; B35.3 Tinea pedis; Z08 Encounter for follow-up examination after completed treatment for malignant neoplasm; Z86.007 Personal history of in-situ neoplasm of skin; L57.0 Actinic keratosis | CPT/HCPCS: 17000; 99213 ==